=== PATIENT | male | born 1970 | race American Indian/Alaskan Native ===

== ENCOUNTER 2018-12-17 08:48 | Emergency (ER) | payer OTHER ==
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
--- NOTE | 2018-12-17 13:00 | RAD ---
Date of service: 12/17/2018 PROCEDURE: Right femur two views. HISTORY: rule out fracture COMPARISON: None TECHNIQUE: Standard protocol for this study/examination. FINDINGS: No significant/acute osseous, articular or soft tissue abnormalities. IMPRESSION: No acute findings related to/ accounting for the clinical presentation.
[2018-12-17 13:53] VITALS: BP 188/94; RESP 16; TEMP 98.3
[2018-12-17 13:56] VITALS: PULSE 92; O2SAT 100
== END 2018-12-17 13:50 | disposition home or self-care (01) ==
LOC: H.ER 08:48
DX: M25.551 Pain in right hip (principal); E11.9 Type 2 diabetes mellitus without complications; V49.09XA Driver injured in collision with other motor vehicles in nontraffic accident, initial encounter; Y92.481 Parking lot as the place of occurrence of the external cause